=== PATIENT | male | born 1970 | race Caucasian/White ===

== ENCOUNTER 2017-03-01 00:20 | Emergency (ER) | payer BC ==
[~2017-03-01] VITALS: Ht 177.8 cm; Wt 89.5 kg
[2017-03-01 00:30] VITALS: BP 167/111; TEMP 97.7
[2017-03-01 01:56] VITALS: PULSE 84
== END 2017-03-01 01:50 | disposition left against medical advice (07) ==
LOC: COL.ER 00:20
DX: R10.11 Right upper quadrant pain (principal); R10.33 Periumbilical pain; R10.12 Left upper quadrant pain; Z53.21 Procedure and treatment not carried out due to patient leaving prior to being seen by health care provider